=== PATIENT | female | born 1960 | race African-American/Black ===

== ENCOUNTER 2023-05-26 13:00 | Observation (INO) ==
[2023-05-26 10:29] VITALS: BMI 39.9
[~2023-05-26 13:00] MED LIST: BARHEMSYS INJ IVP PRN; BENADRYL INJ 50 MG VIAL IVP PRN; BRIDION ONE; BYFAVO INJ IVP ONE; CLEOCIN 600 MG IV PREMIX 600 MG/50 ML BAG IV ONE; DIPRIVAN VIAL 20 ML ONE; FENTANYL VIAL INJ 100 mcg ONE; LR 1,000 ML IV 1,000 ML IV ONE; MARCAINE 0.25% INJ ONE; NAROPIN 0.75% EPI ONE; NEO-SYNEPHRINE INJ ONE; PEPCID 20 MG VIAL ONE; ROBINUL ONE; SUPRANE ONE; XYLOCAINE 2 % (PLAIN) ONE; ZEMURON 100 MG VIAL ONE; ZOFRAN INJ 4 MG VIAL IVP PRN; ZOFRAN INJ 4 MG VIAL ONE
[2023-05-26] MEDS ORDERED: TYLENOL 325 MG TAB PO PRN (13:03)
[2023-05-26] MEDS ORDERED: ZOFRAN INJ 4 MG VIAL IVP PRN ×2 (13:03→13:04)
[2023-05-26] MEDS ORDERED: BARHEMSYS INJ IVP PRN (13:04)
[2023-05-26] MEDS ORDERED: BENADRYL INJ 50 MG VIAL IVP PRN (13:04)
[2023-05-26] MEDS ORDERED: DILAUDID INJ IVP PRN (13:04)
[2023-05-26] MEDS ORDERED: REGLAN INJ 10 MG VIAL IVP PRN (13:04)
[2023-05-26] MEDS ORDERED: DILAUDID INJ ONE (13:16)
[2023-05-26] MEDS: DILAUDID INJ IVP PRN ×4 (13:18→21:34)
[2023-05-26] MEDS: PERCOCET TAB 5/325 MG PO PRN (17:58)
[2023-05-26] MEDS: COLACE CAP 100 MG PO SCH (20:04)
[2023-05-27 05:03] LABS: BLOOD UREA NITROGEN 16 mg/dL (7-18); CALCIUM 8.4 mg/dL (8.5-10.1); CARBON DIOXIDE 29.2 mmol/L (21-32); CHLORIDE 99 mmol/L (98-107); COR NA(FOR HYPERGLY) 136 mmol/L (136-145); CREATININE 1.02 mg/dL (0.55-1.02); GLUCOSE 119 mg/dL (65-99); POTASSIUM 3.8 mmol/L (3.5-5.1); SODIUM 136 mmol/L (136-145); eGFR NON BLACK RACES 58 (>60)
[2023-05-27] MEDS ORDERED: CONSULT PHARMACY - POTASSIUM & MAGNESIUM XX SCH (06:00)
[2023-05-27] MEDS: PERCOCET TAB 5/325 MG PO PRN ×2 (06:02→13:25)
[2023-05-27] MEDS ORDERED: MILK OF MAGNESIA PO PRN (07:46)
--- NOTE | 2023-05-27 08:18 | NOTE.SOAP ---
Soap Note Note for Day of Date of Exam: 05/27/23 Subjective Data Subjective Data: Patient is POD1 Achilles Repair LLE, patient doing well this am. She was seen sitting in the commode eating breakfast. She has been tolerating the pain with medication. She denies any symptoms overnight although she states that she has been constipated since monday. States that bandages are tight. Denies nausea, vomiting, fever, chills, calf pain, SOB Objective Data Objective Data: Dressings c/d/i without strikethrough to LLE Able to move toes Neurovascular status intact to LLE Assessment Assessment: S/P Achilles Repair with FHL tendon transfer, left (DOS: 05/26/23) -Achilles Tendonitis Plan Plan: Patient was seen bedside. She will continue pain meds while in house. Ordered Milk of mag for constipation, she requested metamucil although not available in the hospital. I loosened her BONNIE wrap and patient felt some relief. She is to remain NWB to the LLE with assistance of a walker. Waiting on physical therapy to give evaluation for rehab placement. Patient would like to be placed in a rehab placement as she has no help at home. We agreed on the plan, pending case management and PT [email or web address]
[2023-05-27] MEDS ORDERED: K-DUR TAB 20 MEQ PO SCH (09:00)
[2023-05-27] MEDS ORDERED: LINZESS PO ONE (09:05)
[2023-05-27] MEDS ORDERED: OXCARBAZEPINE PO SCH (09:15)
[2023-05-27] MEDS ORDERED: PATIENT'S HOME MEDICATION (Mycophenolate Mofetil 500 mg tablet) PO SCH (09:15)
[2023-05-27] MEDS ORDERED: OLMESARTAN AMLODIPIN HCTHIAZID PO SCH (09:15)
[2023-05-27] MEDS ORDERED: FAMCICLOVIR 250 MG PO SCH (09:15)
[2023-05-27] MEDS: LOVENOX INJ 40 MG SYR SC SCH (09:44)
[2023-05-27] MEDS: MAG-OX TAB PO SCH ×2 (09:44→11:15)
[2023-05-27] MEDS: K-DUR TAB 20 MEQ PO SCH (09:45)
[2023-05-27] MEDS: APRESOLINE TAB 25 MG PO SCH ×2 (09:46→21:04)
[2023-05-27] MEDS: PROTONIX TAB 40 MG PO SCH (09:46)
[2023-05-27] MEDS: PLAQUENIL PO SCH ×2 (09:46→21:03)
[2023-05-27] MEDS: SINGULAIR TAB 10 MG PO SCH (10:45)
[2023-05-27] MEDS: DILAUDID INJ IVP PRN ×2 (11:13→19:59)
[2023-05-27] MEDS: NORVASC TAB 10 MG PO SCH (13:26)
[2023-05-27] MEDS: BENICAR PO SCH (13:26)
[2023-05-27] MEDS: HYDROCHLOROTHIAZIDE 12.5 MG CAP PO SCH (13:26)
[2023-05-27] MEDS ORDERED: LOPRESSOR TAB 25 MG PO SCH (21:00)
[2023-05-27] MEDS ORDERED: AMBIEN PO PRN (21:00)
[2023-05-27] MEDS: LIPITOR TAB 40 MG PO SCH (21:03)
[2023-05-27] MEDS: PATIENT'S HOME MEDICATION (Mycophenolate Mofetil 500 mg tablet) PO SCH (21:10)
[2023-05-27] MEDS: COLACE CAP 100 MG PO SCH (21:10)
[2023-05-27] MEDS: FAMCICLOVIR 250 MG PO SCH (21:10)
[2023-05-28] MEDS: DILAUDID INJ IVP PRN (02:50)
[2023-05-28 06:25] LABS: BASOPHILS # (AUTO) 0.1 X10^3/uL (0.0-0.1); BASOPHILS % (AUTO) 0.8 % (0.2-1.0); EOSINOPHILS # (AUTO) 0.4 x10^3/uL (0.0-0.2); EOSINOPHILS % (AUTO) 5.4 % (0.9-2.9); HEMATOCRIT 32.6 % (36.0-47.0); HEMOGLOBIN 11.4 g/dL (12.0-16.0); LYMPHOCYTES # (AUTO) 1.9 X10^3/uL (1.3-2.9); LYMPHOCYTES % (AUTO) 25.5 % (21.0-51.0); MEAN CORPUSCULAR HEMOGLOBIN 31.7 pg (27.0-34.0); MEAN CORPUSCULAR HGB CONC 34.9 g/dL (33.0-35.0); MEAN CORPUSCULAR VOLUME 90.8 fL (80.0-100.0); MEAN PLATELET VOLUME 9.2 fL (7.4-11.0); MONOCYTES # (AUTO) 1.2 x10^3/uL (0.3-0.8); MONOCYTES % (AUTO) 16.5 % (0.0-13.0); NEUTROPHILS # (AUTO) 3.8 x10^3/uL (2.2-4.8); NEUTROPHILS % (AUTO) 51.8 % (42.0-75.0); PLATELET COUNT 151 X10^3/uL (150.0-450.0); RED BLOOD COUNT 3.59 X10^6/uL (3.5-5.4); RED CELL DISTRIBUTION WIDTH 13.7 % (11.6-16.5); WHITE BLOOD COUNT 7.3 X10^3/uL (3.6-10.0)
[2023-05-28 06:33] LABS: MAGNESIUM 2.1 mg/dL (2.0-2.9); POTASSIUM 3.3 mmol/L (3.5-5.1)
[2023-05-28] MEDS ORDERED: CONSULT PHARMACY - POTASSIUM & MAGNESIUM XX SCH (07:00)
--- NOTE | 2023-05-28 08:42 | NOTE.SOAP ---
Soap Note Note for Day of Date of Exam: 05/27/23 Subjective Data Subjective Data: Patient is POD2 Achilles Repair LLE, patient doing well this am. Pain tolerated. No acute events overnight. Denies nausea, vomiting, fever, chills, calf pain, SOB Objective Data Objective Data: Dressings c/d/i without strikethrough to LLE Able to move toes Neurovascular status intact to LLE Assessment Assessment: S/P Achilles Repair with FHL tendon transfer, left (DOS: 05/26/23) -Achilles Tendonitis Plan Plan: Patient was seen bedside. She will continue pain meds while in house; please transition to PO pain medication on scheduled. I loosened her BONNIE wrap and patient felt some relief. She is to remain NWB to the LLE with assistance of a walker. Waiting on physical therapy to give evaluation for rehab placement, hopefully tomorrow (monday). Patient would like to be placed in a rehab placement as she has no support at home. We agreed on the plan, pending case management and PT [email or web address]
[2023-05-28] MEDS ORDERED: OXCARBAZEPINE PO SCH (09:00)
[2023-05-28] MEDS ORDERED: OLMESARTAN AMLODIPIN HCTHIAZID PO SCH (09:00)
[2023-05-28] MEDS: PERCOCET TAB 5/325 MG PO PRN ×2 (09:13→18:42)
[2023-05-28] MEDS: APRESOLINE TAB 25 MG PO SCH ×2 (09:13→20:09)
[2023-05-28] MEDS: K-DUR TAB 20 MEQ PO SCH ×3 (09:14→12:27)
[2023-05-28] MEDS: HYDROCHLOROTHIAZIDE 12.5 MG CAP PO SCH (09:14)
[2023-05-28] MEDS: NORVASC TAB 10 MG PO SCH (09:14)
[2023-05-28] MEDS: BENICAR PO SCH (09:14)
[2023-05-28] MEDS: LOPRESSOR TAB 25 MG PO SCH ×2 (09:14→20:09)
[2023-05-28] MEDS: PLAQUENIL PO SCH ×2 (09:14→20:10)
[2023-05-28] MEDS: PROTONIX TAB 40 MG PO SCH (09:14)
[2023-05-28] MEDS: SINGULAIR TAB 10 MG PO SCH (09:14)
[2023-05-28] MEDS: LOVENOX INJ 40 MG SYR SC SCH (09:15)
[2023-05-28] MEDS: OXCARBAZEPINE PO SCH (09:21)
[2023-05-28] MEDS: FAMCICLOVIR 250 MG PO SCH ×2 (09:21→20:12)
[2023-05-28] MEDS: PATIENT'S HOME MEDICATION (Mycophenolate Mofetil 500 mg tablet) PO SCH ×3 (09:21→20:19)
[2023-05-28] MEDS: LIPITOR TAB 40 MG PO SCH (20:10)
[2023-05-28] MEDS: COLACE CAP 100 MG PO SCH (20:10)
[2023-05-29 04:43] VITALS: RESP 18
[2023-05-29] MEDS: PERCOCET TAB 5/325 MG PO PRN (04:53)
[2023-05-29 05:34] LABS: BASOPHILS # (AUTO) 0.1 X10^3/uL (0.0-0.1); BASOPHILS % (AUTO) 1.8 % (0.2-1.0); EOSINOPHILS # (AUTO) 0.5 x10^3/uL (0.0-0.2); EOSINOPHILS % (AUTO) 7.2 % (0.9-2.9); HEMATOCRIT 32.5 % (36.0-47.0); HEMOGLOBIN 11.2 g/dL (12.0-16.0); LYMPHOCYTES # (AUTO) 2.6 X10^3/uL (1.3-2.9); LYMPHOCYTES % (AUTO) 35.6 % (21.0-51.0); MEAN CORPUSCULAR HEMOGLOBIN 31.9 pg (27.0-34.0); MEAN CORPUSCULAR HGB CONC 34.5 g/dL (33.0-35.0); MEAN CORPUSCULAR VOLUME 92.3 fL (80.0-100.0); MEAN PLATELET VOLUME 9.2 fL (7.4-11.0); MONOCYTES # (AUTO) 1.2 x10^3/uL (0.3-0.8); MONOCYTES % (AUTO) 15.8 % (0.0-13.0); NEUTROPHILS # (AUTO) 2.9 x10^3/uL (2.2-4.8); NEUTROPHILS % (AUTO) 39.6 % (42.0-75.0); PLATELET COUNT 165 X10^3/uL (150.0-450.0); RED BLOOD COUNT 3.52 X10^6/uL (3.5-5.4); RED CELL DISTRIBUTION WIDTH 13.5 % (11.6-16.5); WHITE BLOOD COUNT 7.3 X10^3/uL (3.6-10.0)
[2023-05-29 05:56] LABS: ALANINE AMINOTRANSFERASE 24 Units/L (12-78); ALKALINE PHOSPHATASE 87 Units/L (46-116); ASPARTATE AMINO TRANSFERASE 31 Units/L (15-37); BLOOD UREA NITROGEN 13 mg/dL (7-18); CALCIUM 8.7 mg/dL (8.5-10.1); CHLORIDE 102 mmol/L (98-107); COR CA(FOR HYPOALB) 9.5 mg/dL (8.5-10.1); CREATININE 1.08 mg/dL (0.55-1.02); GLUCOSE 102 mg/dL (65-99); POTASSIUM 3.7 mmol/L (3.5-5.1); SODIUM 138 mmol/L (136-145); TOTAL PROTEIN 6.6 g/dL (6.4-8.2); eGFR NON BLACK RACES 54 (>60)
[2023-05-29] MEDS ORDERED: CONSULT PHARMACY - POTASSIUM & MAGNESIUM XX SCH (07:00)
--- NOTE | 2023-05-29 07:58 | NOTE.SOAP ---
Soap Note Note for Day of Date of Exam: 05/27/23 Subjective Data Subjective Data: POD3 Achilles repair- patient doing well this am, sitting up and eating breakfast. No acute symptoms and pain is well controlled. Objective Data Objective Data: Dressings c/d/i without strikethrough to LLE Able to move toes Neurovascular status intact to LLE Assessment Assessment: S/P Achilles Repair with FHL tendon transfer, left (DOS: 05/26/23) -Achilles Tendonitis Plan Plan: Patient was seen bedside. Dressing c/d/i. Continue PO pain management. She is to remain NWB to the LLE with assistance of a walker. Waiting on physical therapy to give evaluation for rehab placement. Once she is seen by PT today and rehab is arranged, she can be discharged today. Please dispense scripts and post op instructions in the chart. Discussed plan with nurses and Case Management
[2023-05-29] MEDS: FAMCICLOVIR 250 MG PO SCH (08:28)
[2023-05-29] MEDS: OXCARBAZEPINE PO SCH (08:30)
[2023-05-29] MEDS: HYDROCHLOROTHIAZIDE 12.5 MG CAP PO SCH (08:33)
[2023-05-29] MEDS: APRESOLINE TAB 25 MG PO SCH (08:34)
[2023-05-29] MEDS: BENICAR PO SCH (08:34)
[2023-05-29] MEDS: LOPRESSOR TAB 25 MG PO SCH (08:35)
[2023-05-29] MEDS: SINGULAIR TAB 10 MG PO SCH (08:36)
[2023-05-29] MEDS: K-DUR TAB 20 MEQ PO SCH (08:36)
[2023-05-29] MEDS: NORVASC TAB 10 MG PO SCH (08:36)
[2023-05-29] MEDS: PLAQUENIL PO SCH (08:37)
[2023-05-29] MEDS: PROTONIX TAB 40 MG PO SCH (08:37)
[2023-05-29] MEDS: LOVENOX INJ 40 MG SYR SC SCH (08:38)
[2023-05-29 08:58] VITALS: O2SAT 97
[2023-05-29] MEDS ORDERED: MYCOPHENOLATE MOFETIL PO SCH (09:00)
[2023-05-29] MEDS ORDERED: K-DUR TAB 20 MEQ PO SCH (10:00)
[2023-05-29 12:37] VITALS: BP 166/72; PULSE 80; TEMP 97.5
== END 2023-05-29 13:30 ==
LOC: MED/SURG → EDSTATUS 14:45
PROVIDERS: ADMIT Obstetrics & Gynecology Obstetrics; ATTEND Obstetrics & Gynecology Obstetrics
PROC: ACHTENR (ICD-10-PCS; 2023-05-26 13:15)
DX: M66.372 Spontaneous rupture of flexor tendons, left ankle and foot; M77.32 Calcaneal spur, left foot; M67.02 Short Achilles tendon (acquired), left ankle; E83.42 Hypomagnesemia; E87.6 Hypokalemia